=== PATIENT | female | born 1950 | race Caucasian/White ===

== ENCOUNTER → 2017-01-25 | Outpatient (CLI) | payer MEDICARE, MEDICAID ==
[~2017-01-25] MED LIST: CALTRATE-600 D600 MG PO; CARAFATE DPS1 GM PO; DELTASONE DPS20 MG PO; DOVONEX60 GM TP; DULERA 100/58.8 GM IH; FOLVITE-DPS1 MG PO; GUAIFENESIN AC473 ML PO; METOPROLOL TART25 MG PO; MUCINEX600 MG PO; NASACORT16.9 ML NS; NORVASC5 MG PO; OCEAN NASAL MIS45 ML NS; OMEGA-3 DPS1000 MG PO; OTREXUP 1515 MG/0.4 SQ; PHENERGAN W/COD30 ML PO; PRILOSEC DPS20 MG PO; REMICADE100 MG PO; SPECTAZOLE TP; SPIRIVA18 MCG IH; TEMOVATE O.05%15 GM TP; ULTRAM DPS50 MG PO; VIBRAMYCIN-DPS100 M2 PO; VITAMIN D50000 UNIT PO; ZESTRIL DPS10 MG PO; ZYLOPRIM-DPS100 MG PO
== END | disposition home or self-care (01) ==
LOC: RAD.S 10:58
DX: Z12.31 Encounter for screening mammogram for malignant neoplasm of breast (principal); R92.0 Mammographic microcalcification found on diagnostic imaging of breast

== ENCOUNTER → 2017-01-29 | Outpatient (CLI) | payer MEDICARE, MEDICAID | END | disposition home or self-care (01) | LOC: RAD.S 13:02 | DX: R92.0 Mammographic microcalcification found on diagnostic imaging of breast (principal) ==